=== PATIENT | male | born 2000 | race Two or more races ===

== ENCOUNTER 2023-03-02 21:54 | Emergency (ER) | payer OTHER ==
[2023-03-02 22:01] VITALS: BP 122/80; PULSE 85; RESP 18; TEMP 98.1; BMI 23.6
[2023-03-02] MEDS ORDERED: AMOX TR/POT CLAV 875MG/125MG TABLETS (FP) PO ONE ×2 (22:54)
[2023-03-02] MEDS ORDERED: DIPHTH,PERTUSS(ACELL),TET 0.5 ML DISP.SYRIN IM ONE ×2 (22:54→22:57)
[2023-03-02] MEDS ORDERED: AMOX TR/POT CLAV 875MG/125MG TABLETS (FP) ONE (22:57)
[2023-03-02] MEDS ORDERED: ACETAMINOPHEN 500 MG TABLET (FP) PO ONE (23:04)
[2023-03-02] MEDS ORDERED: BACITRACIN ZINC 15 GM TUBE TOPICAL OINTMENT ONE (23:22)
[2023-03-02] MEDS ORDERED: ACETAMINOPHEN 500 MG TABLET (FP) ONE (23:27)
== END 2023-03-02 23:31 | disposition home or self-care (01) ==
LOC: JER 21:54 → JERFT 21:54
PROC: 0HQ1XZZ Repair Face Skin, External Approach (ICD-10-PCS; principal; 2023-03-02)
PROC: 3E0234Z Introduction of Serum, Toxoid and Vaccine into Muscle, Percutaneous Approach (ICD-10-PCS; 2023-03-02)
DX: S61.214A Laceration without foreign body of right ring finger without damage to nail, initial encounter (principal); W31.2XXA Contact with powered woodworking and forming machines, initial encounter; Y93.89 Activity, other specified; Y92.008 Other place in unspecified non-institutional (private) residence as the place of occurrence of the external cause
CPT/HCPCS: 12001-25; 73130-TC-RT-FY; 90471; 90715; 99283-25